=== PATIENT | male | born 1965 | race Caucasian/White ===

== ENCOUNTER → 2022-04-02 | Outpatient (CLI) | payer OTHER ==
[~2022-04-02] MED LIST: DOSS PO; FISH OIL 1,0001 EACH PO; GLUCOPHAGE500 MG PO; LISINOPRIL10 MG PO; NAPROSYN500 MG PO; PERCOCET 7.5-31 EACH PO; ZOCOR10 MG PO; ZOFRAN4 MG PO
== END ==
LOC: KOH-I 10:02
DX: M25.561 Pain in right knee (principal); M17.11 Unilateral primary osteoarthritis, right knee
CPT/HCPCS: 73562